=== PATIENT | male | born 1955 | race Caucasian/White ===

== ENCOUNTER 2016-07-13 16:26 | Emergency (ER) | payer SELFPAY ==
[~2016-07-13] VITALS: Ht 172.7 cm; Wt 80.0 kg
[2016-07-13 16:27] VITALS: BP 158/87; PULSE 66; RESP 20; TEMP 97.8; O2SAT 97
--- NOTE | 2016-07-13 16:44 | PD ---
Physical Exam Time Seen by Provider: 16:40 Narrative 61yo M c/o sunburn to top of feet Monday. Swelling Monday and yesterday. Denies fever, vomiting. Concerned of cellulitis and requesting antibiotics. Patient seen in triage. VS reviewed. Awaiting bed placement. Data Data Last Documented VS Vital Signs Date Time Temp Pulse Resp B/P Pulse Ox O2 Delivery O2 Flow Rate FiO2 07/13/16 16:27 97.8 66 20 158/87 97 Room Air MDM Supervised Visit with DEVON: No Scripts No Active Prescriptions or Reported Meds Tasia Rahman July 13, 2016 16:44
[2016-07-13] MEDS ORDERED: BACT800T5 PO (17:05)
[2016-07-13] MEDS ORDERED: IBUP800T23 PO (17:05)
--- NOTE | 2016-07-13 17:05 | PD ---
HPI Chief Complaint: Edema Time Seen by Provider: 16:45 Travel History International Travel<30 days: No Contact w/Intl Traveler<30days: No Traveled to known affect area: No History of Present Illness HPI Patient is a 7-year-old male presented to the emergency department evaluation of feet and leg swelling after having a sunburn on Monday. Patient states Monday afternoon after he returned home the tops of his feet were swollen, he reports swelling to his feet and legs. He reports redness to the anterior aspects of his shins which she also attributes to the sunburn. He does state he has a history of cellulitis of presented in much the same way. Patient has a blister to the right foot on the dorsal aspect which appeared on Monday. He denies any fever, chills, nausea, vomiting. He does report pain in his feet at a 7 out of 10 at times. He states the swelling resolves somewhat with elevation. He denies any calf pain. PFSH Past Medical History Medical History: Denies Significant Hx Social History Alcohol Use: Yes (occasional) Tobacco Use: No Substance Use: No Allergies-Medications (Allergen,Severity, Reaction): Coded Allergies: Penicillin (Verified Allergy, Mild, Hives, 07/13/16) Reported Meds & Prescriptions Reported Meds & Active Scripts Active Ibuprofen 800 Mg Tab 800 Mg PO Q8H PRN 10 Days Bactrim DS (Sulfamethoxazole-Trimethoprim) 800-160 Mg Tab 1 Tab PO BID Review of Systems Except as stated in HPI: all other systems reviewed are Neg General / Constitutional: No: Fever, Chills HENT: No: Headaches Cardiovascular: No: Chest Pain or Discomfort Respiratory: No: Wheezing Gastrointestinal: No: Nausea, Abdominal Pain Musculoskeletal: Positive: Myalgias, Edema, Pain Skin: Positive Change in Pigmentation, Positive Lesions Physical Exam Narrative GENERAL: Well-nourished, well-developed patient. SKIN: Focused skin assessment warm/dry. Erythema noted to the dorsal aspects of bilateral feet and shins. Edema noted to bilateral feet and shins, 2+ right , 1+ on left. There is a 2 cm bullous lesion to the dorsal aspect of the right foot over the second, third, fourth MTP and metatarsals. Patient is neurovascularly intact with positive pedal pulses. Brisk less than 3 second capillary refill. HEAD: Normocephalic. EYES: No scleral icterus. No injection or drainage. NECK: Supple, trachea midline. No JVD or lymphadenopathy. CARDIOVASCULAR: Regular rate and rhythm without murmurs, gallops, or rubs. RESPIRATORY: Breath sounds equal bilaterally. No accessory muscle use. GASTROINTESTINAL: Abdomen soft, non-tender, nondistended. MUSCULOSKELETAL: No cyanosis, or edema. Negative Homans sign bilaterally. BACK: Nontender without obvious deformity. No CVA tenderness. Data Data Last Documented VS Vital Signs Date Time Temp Pulse Resp B/P Pulse Ox O2 Delivery O2 Flow Rate FiO2 07/13/16 16:27 97.8 66 20 158/87 97 Room Air Orders Cefazolin Inj (Ancef Inj) (07/13/16 17:15) [facility] Medical Decision Making Medical Screen Exam Complete: Yes Emergency Medical Condition: Yes Interpretation(s) Vital Signs Date Time Temp Pulse Resp B/P Pulse Ox O2 Delivery O2 Flow Rate FiO2 07/13/16 16:27 97.8 66 20 158/87 97 Room Air Differential Diagnosis Sunburn versus cellulitis versus DVT versus other Narrative Course Patient is a 61-year-old male, well-appearing presenting with edema and redness to bilateral lower extremities secondary to sunburn initially currently with a concern for cellulitis. Patient is afebrile and his vital signs are stable. Patient reports no health problems, he has no significant past medical history. He does report routine physical examinations but does not have a primary care provider. The swelling is worse on the right than the left but the sunburn is also worse on the right than the left. There is a possibility of DVT however patient has no risk factors, he does not smoke, no diabetes, he has not been sedentary, negative Homans sign. Discussed with my attending physician. At this time patient be treated with outpatient antibiotics. He was advised to stay home from work for the next 48 hours, keep legs elevated, apply cool compresses. He will be given a dose of Ancef in the emergency department today. He reports a history of allergy to penicillin age 13. He states that he had a fever and was given penicillin and when he woke up in the morning he was covered in a bright red rash/hives. Patient will be kept in the emergency department to ensure that he does not have a reaction to the Ancef. He was advised to follow-up with the primary doctor in 48 hours, he was advised to return to emergency department immediately for any new or worsening symptoms or if the redness began to extend despite being on antibiotics. Patient verbalized understanding of these instructions. Patient will be stable for discharge if no reaction to the Ancef. 1814-patient reassessed, he has had no adverse reaction to Ancef. Patient will be discharged home. He is advised to return immediately once again for any new or worsening symptoms. Diagnosis Primary Impression: Cellulitis Qualified Code: L03.119 - Cellulitis of lower extremity, unspecified laterality Referrals: Primary Care Physician 2 days Patient Instructions: Cellulitis (DC), General Instructions Departure Forms: Tests/Procedures, Work Release Special Instructions: PT ADVISED TO AVOID FLYING ON MONDAY IF SYMPTOMS PERSIST/WORSEN. Additional Instructions: Rest, ice, elevate extremities Complete full course of antibiotics as prescribed Return to emergency department immediately for any new or worsening symptoms Follow-up with your primary doctor or at the facility clinic Med/Other Pt SpecificInfo: Prescription(s) given Scripts Ibuprofen 800 Mg Nit373 Mg PO Q8H PRN (Pain/Inflammation) 10 Days Ref 0 Prov:Martina Esquivel 07/13/16 Sulfamethoxazole-Trimethoprim (Bactrim DS)800-160 Mg Tab1 Tab PO BID #20 TAB Ref 0 Prov:Martina Esquivel 07/13/16 Disposition: 01 DISCHARGE HOME Condition: Stable Martina Esquivel July 13, 2016 17:05
[2016-07-13] MEDS ORDERED: ceFAZolin INJ 1,000 MG VIAL IM ONE (17:15)
== END 2016-07-13 18:24 | disposition home or self-care (01) ==
LOC: NEPK 16:26
DX: L03.116 Cellulitis of left lower limb (principal); L03.115 Cellulitis of right lower limb; Z88.0 Allergy status to penicillin
CPT/HCPCS: 96372; 99284; J0690